=== PATIENT | male | born 1995 | race Caucasian/White ===

== ENCOUNTER 2017-05-06 23:35 | Emergency (ER) | payer OTHER ==
[~2017-05-06] VITALS: Ht 175.3 cm; Wt 74.8 kg
--- NOTE | ~2017-05-06 | EKG ---
[place] [address] [facility] [place] [address] ELECTROCARDIOGRAM REPORT Name: NOENAS Room #: [facility] [place] De La Fuente#: [id number] Admission: 05/06/17 Attend Phys: Discharge: 05/07/17 Date of : [birth year] Report #: [id number] THIS REPORT FOR: //name// [facility] ED Test Date: 2017-05-06 Test Time: 23:41:30 Pat Name: NAS LIU Department: Room: Gender: Adjunct Nursing Faculty: Konstantin CARPENTER : 1995 Requested By: Nils Lisa Order Number: [id number] MD: Vasile Hutchinson Measurements Intervals [place] Rate: 78 P: 60 TX: 167 QRS: 53 QRSD: 111 T: 60 QT: 401 QTc: 457 Interpretive Statements Sinus rhythm with sinus arrhythmia Normal tracing No previous ECG available for comparison Electronically Signed On 05-09-2017 11:54:15 CDT by Vasile Hutchinson [email or web address] <ELECTRONICALLY SIGNED> By: Vasile Hutchinson MD, [facility] 05/09/17 [id number] Vasile Hutchinson MD, FAC /EPI
[2017-05-07] MEDS ORDERED: ZYRTEC10 M4
[2017-05-07 00:11] LABS: ABSOLUTE NEUTROPHILS 4.2 thou/uL (1.4-8.2); BASOPHILS 1.1 % (0.0-2.0); EOSINOPHILS 3.5 % (0.0-3.0); HEMATOCRIT 43.4 % (42.0-52.0); HEMOGLOBIN 15.2 gm/dL (14.0-18.0); LYMPHOCYTES 37.7 % (24.0-44.0); MCH 31.1 pg (26.0-34.0); MCHC 35.1 g/dL (28.0-37.0); MCV 88.4 fL (80.0-100.0); MONOCYTES 11.5 % (1.0-8.0); PLATELET COUNT 256 thou/uL (150-400); POLYS 46.2 % (36.0-66.0); RBC 4.91 mil/uL (4.50-6.00); RDW 12.4 % (10.5-14.5)
[2017-05-07 00:14] LABS: MANUAL DIFF NO
[2017-05-07 00:27] LABS: ANION GAP 15 mmol/L (7-16); BUN 20 mg/dL (7-18); CALCIUM 9.6 mg/dL (8.5-10.1); CHLORIDE 102 mmol/L (98-107); CO2 23 mmol/L (21-32); CREATININE 1.2 mg/dL (0.7-1.3); GLUCOSE 97 mg/dL (74-106); SODIUM 140 mmol/L (136-145); TROPONIN-I < 0.04 ng/mL (<0.04-0.07)
[2017-05-07 00:55] VITALS: BP 138/76
== END 2017-05-07 00:53 | disposition home or self-care (01) ==
LOC: ER 23:35
PROVIDERS: Nurse Practitioner
DX: E86.0 Dehydration (principal); E03.9 Hypothyroidism, unspecified; Z91.041 Radiographic dye allergy status